=== PATIENT | female | born 1945 | race Caucasian/White ===

== ENCOUNTER → 2017-01-27 | Outpatient (CLI) | payer OTHER, MEDICARE ==
[~2017-01-27] MED LIST: CELEBREX 200 M200 MG PO; DIVIGEL0.5 MG; DOLOPHINE HCL10 MG; EMBEDA PO; ESTRATEST TABL1 EACH PO; GABAPENTIN; GABITRIL4 MG PO; IMITREX100 MG PO; LORTAB 5 MG/5001 TA1 PO; PERCOCET 5-3251 EACH PO; PHENERGAN 25 MG25 M1; PHENERGAN 25 MG25 M1 PO; PRILOSEC40 MG PO; SAVELLA100 MG PO; SIMVASTATIN40 MG PO; SINGULAIR 10 MG10 M1 PO; SYNTHROID137 MCG PO; WELLBUTRIN SR150 MG PO; ZANAFLEX2 M1 PO; nuvigil
== END ==
LOC: RAD 01:49
DX: Z12.31 Encounter for screening mammogram for malignant neoplasm of breast (principal)

== ENCOUNTER → 2017-09-02 | Outpatient (CLI) | payer OTHER, MEDICARE | LOC: RAD 10:35 → ULTRA 10:35 | DX: N63.20 Unspecified lump in the left breast, unspecified quadrant (principal); R92.8 Other abnormal and inconclusive findings on diagnostic imaging of breast ==

== ENCOUNTER → 2019-01-19 | Outpatient (CLI) | payer OTHER, MEDICARE | LOC: RAD 12:47 | DX: N60.01 Solitary cyst of right breast (principal) ==